=== PATIENT | male | born 1965 | race Caucasian/White ===

== ENCOUNTER → 2017-07-12 13:36 | Outpatient (CLI) | payer MEDICARE, SELFPAY ==
[2017-07-12 15:42] LABS: Absolute Lymphocyte Count 1.72 X10^3/ul (0.83-4.51); Absolute Neutrophil Count 5.2 X10^3/uL (2.0-7.7); Basophil# 0.03 X10^3/uL; Basophil% 0.4 % (0-1); Eosinophil# 0.13 X10^3/uL; Eosinophils% 1.7 % (0-5); Hematocrit 42.7 % (40-54); Hemoglobin 14.2 g/dl (13.0-16.5); Lymphocyte # 1.72 X10^3/ul (4.0); Lymphocyte % 22.5 % (19-41); Mean Corp Hgb Conc 33.3 g/gl (32-36); Mean Corpuscular Hgb 31.5 pg (27.0-32.0); Mean Corpuscular Volume 94.7 fL (80-94); Mean Platelet Vol. 8.9 fl (6.2-12.0); Monocyte# 0.53 X10^3/uL; Monocyte% 6.9 % (0-10); Neutrophil # 5.21 X10^3/uL (2.7-7.7); Neutrophil % 68.4 % (47-70); Platelet Count 298 K/mm3 (150-450); RBC Distribution Width CV 13.6 % (11.6-14.6); Red Blood Count 4.51 M/mm3 (4.6-6.2); White Blood Count 7.6 K/mm3 (4.4-11.0)
[2017-07-12 15:43] LABS: POSITIVE COUNT NO; POSITIVE DIFFERENTIAL NO; POSITIVE MORPHOLOGY NO
[2017-07-12 16:05] LABS: ALB/GLOB Ratio 0.8 RATIO (0.9-2.4); AST(SGOT) 18 U/L (15-37); Alanine Aminotransfer ALT/SGPT 28 U/L (16-61); Albumin, Serum 3.5 g/dL (3.2-5.0); Alkaline Phosphatase 86 U/L (45-117); Anion Gap 8 (5-15); BUN 13 mg/dL (7-18); BUN/Creat Ratio 13.6 RATIO (10-20); Calcium,Total 8.5 mg/dL (8.5-10.1); Chloride 99 mmol/L (98-107); Cholesterol 169 mg/dL (200); Creatinine, Serum 0.96 mg/dL (0.70-1.30); EST Glomerular Filtration Rate 87 mL/min (>60); Est Glom Filt Rate - Afr Amer 106 mL/min (>60); Globulin 4.4 g/dL (2.2-4.2); Glucose 205 mg/dL (74-106); High Density Lipoprotein 36 mg/dL; PSA,Total - Annual Screen 0.35 ng/mL (0.00-4.00); Potassium 3.4 mmol/L (3.5-5.1); Protein, Total 7.9 g/dL (6.4-8.2); Sodium Level 136 mmol/L (136-145); T4 Free Direct 1.02 ng/dL (0.76-1.46); Thyroid Stim Hormone (TSH) 2.63 uIU/mL (0.358-3.74); Triglycerides 194 mg/dL; Very Low Density Lipoprotein 39 mg/dL (5-40)
== END ==
PROVIDERS: Family Provider Family Medicine; PCP Family Medicine; Visit Provider Family Medicine
DX: R73.9 Hyperglycemia, unspecified (principal); I10 Essential (primary) hypertension; Z12.5 Encounter for screening for malignant neoplasm of prostate; E01.0 Iodine-deficiency related diffuse (endemic) goiter
CPT/HCPCS: 36415; 80053; 80061; 83036; 84153; 84439; 84443; 85025; G0103

== ENCOUNTER → 2019-08-05 06:47 | Outpatient (CLI) | payer MEDICARE, SELFPAY ==
[2017-04-22 13:53] VITALS: BMI 32.7
[2019-08-05 07:32] LABS: Absolute Lymphocyte Count 1.64 X10^3/uL (0.83-4.51); Absolute Neutrophil Count 8.1 X10^3/uL (2.0-7.7); Basophil# 0.05 X10^3/uL; Basophil% 0.5 % (0-1); Eosinophil# 0.18 X10^3/uL; Eosinophils% 1.7 % (0-5); Hematocrit 48.6 % (40-54); Hemoglobin 16.5 g/dL (13.0-16.5); Lymphocyte # 1.64 X10^3/ul (4.0); Lymphocyte % 15.3 % (19-41); Mean Corpuscular Hgb 31.8 pg (27.0-32.0); Mean Corpuscular Volume 93.6 fL (80-94); Mean Platelet Vol. 8.8 fl (6.2-12.0); Monocyte# 0.75 X10^3/uL; NRBC Flagged by Analyzer 0 % (0-5); Neutrophil # 8.05 X10^3/uL (2.7-7.7); Neutrophil % 75.2 % (47-70); Platelet Count 273 K/mm3 (150-450); RBC Distribution Width CV 13.1 % (11.6-14.6); RBC Distribution Width SD 44.8 fl (35.1-43.9); Red Blood Count 5.19 M/mm3 (4.6-6.2); White Blood Count 10.7 K/mm3 (4.4-11.0)
[2019-08-05 07:45] LABS: Microalbumin,Random Urine 28.7 mg/L (NO RANGE EST.); Microalbumin:Creatinine Ratio 31.4 mg/g CRE (<30 mg/g CRE)
[2019-08-05 07:50] LABS: Hemoglobin A1c 7.3 % (4.2-6.3)
[2019-08-05 07:58] LABS: ALB/GLOB Ratio 0.8 RATIO (0.9-2.4); AST(SGOT) 24 U/L (15-37); Alanine Aminotransfer ALT/SGPT 38 U/L (16-61); Albumin, Serum 3.8 g/dL (3.2-5.0); Alkaline Phosphatase 126 U/L (45-117); Anion Gap 3 (5-15); BUN 10 mg/dL (7-18); BUN/Creat Ratio 10.9 RATIO (10-20); Calcium,Total 8.9 mg/dL (8.5-10.1); Chloride 105 mmol/L (98-107); Cholesterol 181 mg/dL (200); Creatinine, Serum 0.92 mg/dL (0.70-1.30); EST Glomerular Filtration Rate 91 mL/min (>60); Est Glom Filt Rate - Afr Amer 110 mL/min (>60); Globulin 4.9 g/dL (2.2-4.2); Glucose 169 mg/dL (74-106); High Density Lipoprotein 48 mg/dL; Potassium 3.5 mmol/L (3.5-5.1); Protein, Total 8.7 g/dL (6.4-8.2); Sodium Level 139 mmol/L (136-145); Triglycerides 109 mg/dL; Very Low Density Lipoprotein 22 mg/dL (5-40)
== END ==
PROVIDERS: PCP Family Medicine; Visit Provider Family Medicine
DX: Z00.00 Encounter for general adult medical examination without abnormal findings (principal); E11.9 Type 2 diabetes mellitus without complications; I10 Essential (primary) hypertension; Z12.5 Encounter for screening for malignant neoplasm of prostate
CPT/HCPCS: 36415; 80053; 80061; 82043; 82570; 83036; 84153; 85025; G0103

== ENCOUNTER → 2020-06-17 09:12 | Outpatient (CLI) | payer MEDICARE, SELFPAY ==
[2017-04-22 13:53] VITALS: BMI 32.7
[2020-06-17 09:48] LABS: Absolute Lymphocyte Count 1.81 X10^3/uL (0.83-4.51); Absolute Neutrophil Count 7.7 X10^3/uL (2.0-7.7); Basophil# 0.05 X10^3/uL; Basophil% 0.5 % (0-1); Eosinophil# 0.15 X10^3/uL; Eosinophils% 1.4 % (0-5); Hematocrit 45.4 % (40-54); Hemoglobin 15.3 g/dL (13.0-16.5); Lymphocyte # 1.81 X10^3/ul (4.0); Lymphocyte % 17.4 % (19-41); Mean Corp Hgb Conc 33.7 g/dL (32-36); Mean Corpuscular Volume 91.9 fL (80-94); Mean Platelet Vol. 8.9 fl (6.2-12.0); Monocyte# 0.64 X10^3/uL; Monocyte% 6.1 % (0-10); NRBC Flagged by Analyzer 0 % (0-5); Neutrophil # 7.74 X10^3/uL (2.7-7.7); Neutrophil % 74.2 % (47-70); Platelet Count 274 K/mm3 (150-450); RBC Distribution Width CV 13.2 % (11.6-14.6); RBC Distribution Width SD 44.5 fl (35.1-43.9); Red Blood Count 4.94 M/mm3 (4.6-6.2); White Blood Count 10.4 K/mm3 (4.4-11.0)
[2020-06-17 10:06] LABS: Hemoglobin A1c 7.5 % (3.8-5.6)
[2020-06-17 10:10] LABS: Microalbumin,Random Urine 38.7 mg/L (NO RANGE EST.); Microalbumin:Creatinine Ratio 21.1 mg/g CRE (<30 mg/g CRE)
[2020-06-17 10:17] LABS: ALB/GLOB Ratio 0.9 RATIO (0.9-2.4); AST(SGOT) 25 U/L (15-37); Alanine Aminotransfer ALT/SGPT 36 U/L (16-61); Albumin, Serum 3.7 g/dL (3.2-5.0); Alkaline Phosphatase 103 U/L (45-117); Anion Gap 6 (5-15); BUN 9 mg/dL (7-18); BUN/Creat Ratio 10.1 RATIO (10-20); Calcium,Total 8.7 mg/dL (8.5-10.1); Chloride 104 mmol/L (98-107); Cholesterol 183 mg/dL (200); Creatinine, Serum 0.89 mg/dL (0.70-1.30); EST Glomerular Filtration Rate 94 mL/min (>60); Est Glom Filt Rate - Afr Amer 114 mL/min (>60); Globulin 4.3 g/dL (2.2-4.2); Glucose 182 mg/dL (74-106); High Density Lipoprotein 52 mg/dL; Potassium 3.3 mmol/L (3.5-5.1); Sodium Level 139 mmol/L (136-145); Triglycerides 84 mg/dL; Very Low Density Lipoprotein 17 mg/dL (5-40)
== END ==
PROVIDERS: PCP Family Medicine; Referring Provider Family Medicine; Visit Provider Family Medicine
DX: E11.9 Type 2 diabetes mellitus without complications (principal); I10 Essential (primary) hypertension
CPT/HCPCS: 36415; 80053; 80061; 82043; 82570; 83036; 85025

== ENCOUNTER 2020-12-31 15:35 | Emergency (ER) | payer MEDICARE, SELFPAY ==
[2020-12-31 15:37] VITALS: BP 137/73; PULSE 93; RESP 28; TEMP 36.3; O2SAT 97; BMI 65.3
--- NOTE | 2020-12-31 16:02 | CT_ITS ---
STUDY: CT BRAIN WITHOUT CONTRAST REASON FOR EXAM: Male, 55 years old. Seizure like activity RADIATION DOSAGE (If Supplied By Facility): CTDIvol = ( 44.99 ) mGy, DLP = ( 846.73 ) mGycm TECHNIQUE: Transaxial CT imaging of the brain was performed without administration of intravenous contrast material. Individualized dose optimization techniques were used for this CT. COMPARISON: No relevant priors. FINDINGS: Normal soft tissue structures. Normal calvarium. Normal size ventricles and extra-axial spaces for the patient''s age. Normal white matter tracts of the cerebral hemispheres. Lacunar infarction of the right basal ganglia/caudate head, chronic appearing. Localized encephalomalacia and gliosis of the right parietal lobe compatible with old posterior MCA infarct. Normal brainstem. Normal cerebellum. There is no intracranial hemorrhage. There are no findings of an acute ischemic infarction. Normal visualized paranasal sinuses. CT/Brain/Head without Contrast IMPRESSION: 1. No acute intracranial hemorrhage or mass effect. 2. 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 3. Old left caudate/basal ganglia lacunar infarction. Electronically Signed: Ben Downs MD (Brooks) at 16:33 EDT , Service support ,
--- NOTE | 2020-12-31 16:03 | EKG12_ITS ---
Test Reason : SYNCOPE Blood Pressure : / mmHG Vent. Rate : 088 BPM Atrial Rate : 088 BPM P-R Int : 172 ms QRS Dur : 086 ms QT Int : 368 ms P-R-T Axes : 064 073 172 degrees QTc Int : 445 ms Normal sinus rhythm ST & T wave abnormality, consider anterolateral ischemia Abnormal ECG Confirmed by OSVALDO MORGAN, SANGEETA ([id number]), food editor SHANNA PANDEY ([id number]) on 01/05/2021 1:01:25 PM Referred By: DOTTIE Confirmed By:SANGEETA RILEY MD
--- NOTE | 2020-12-31 16:11 | EDS_ITS ---
HPI History of Present Illness Chief Complaint: Syncope Informant: patient and family Narrative Narrative: Patient is a 55-year-old male with a past medical history of hypertension, diabetes, deaf who presents to the emergency department for a episode of seizure-like activity. He was at home sitting in a chair whenever they thought he was about to pass out. He started to have a generalized convulsing. The episode lasted 2 to 3 minutes. He was lethargic after the event. Once ambulance arrived he started to come around and could not remember what happened. He did not fall and hit his head. Patient's only complaint this time is mild numbness around his palm of the pinky finger. He denies a headache or vision changes. No weakness or loss of sensation elsewhere. He denies any chest pain or shortness of breath. He feels like he did have some heart palpitations just prior to the event. He has a very distant history of seizure disorder around 15 years ago and was diagnosed with a TIA at that time. He is not on any seizure medications. Patient did have a few alcoholic beverages today. H is not typically a drinker. No tobacco or drug use. [facility] Medical History (Updated 12/31/20 @ 17:[address] Rocael Chadwick DO) Deaf Diabetes TIA (transient ischemic attack) Home Medications amlodipine 10 mg PO DAILY 12/31/20 [History Last Taken Unknown] lisinopril-hydrochlorothiazide 1 tab PO DAILY 12/31/20 [History Last Taken Unknown] metformin 1,000 mg PO BID 12/31/20 [History Last Taken Unknown] rosuvastatin 10 mg PO DAILY 12/31/20 [History Last Taken Unknown] Allergy/AdvReac Type Severity Reaction Status Date / Time No Known Allergies Allergy Verified 12/31/20 15:43 Surgical History (Updated 12/31/20 @ 15:48 by Halie Kang) Hx of cholecystectomy Social History Smoking Status: Never smoker ROS ROS ED Constitutional Constitutional ED: Denies chills or fever(s) Eyes Eyes: Denies change in vision ENT ENT ED: Denies epistaxis or rhinorrhea Cardiovascular Cardiovascular: Reports palpitations; Denies chest pain Respiratory/Chest Respiratory/Chest: Denies cough, dyspnea or dyspnea on exertion Gastrointestinal Gastrointestinal: Denies abdominal pain, diarrhea, nausea or vomiting Genitourinary Genitourinary ED: Denies dysuria, hematuria or urinary frequency Musculoskeletal Musculoskeletal: Denies back pain or neck pain Integumentary Denies rash Neurologic Neurologic: Denies dizziness, headache(s) or weakness EXAM Physical Exam Const Vital Signs: 12/31/20 15:37 12/31/20 17:13 12/31/20 17:22 Temperature 97.4 F L Temperature Source Temporal Pulse Rate 93 90 84 Respiratory Rate 28 H 26 H 24 H Blood Pressure 137/73 H 127/80 H 130/73 H Blood Pressure Mean 94 95 Pulse Ox 97 97 98 Oxygen Delivery Method Room Air Room Air Positive well nourished and well developed General Appearance ED: well developed and NAD HEENT Reports normocephalic and head/scalp atraumatic Eyes PERRL and EOMs intact bilaterally Neck supple Chest Wall inspection of chest normal Resp normal respiratory effort and clear to auscultation bilaterally Auscultation: Negative for rales, rhonchi or wheezes Cardio regular rate, regular rhythm and no murmurs GI normal to inspection, nondistended, normoactive bowel sounds and non-tender Palpation: soft; Negative for guarding or rebound tenderness present Extremity normal to inspection General Extremety ED: Negative for edema or tenderness General Extremity: Negative for edema Neuro CN's II-XII intact bilaterally and no sensory deficits noted Neuro Narrative: Mild numbness along the left lateral hand palm. Otherwise good case management assistant strength. No focal deficits. NIH score is 0. Sensorium / Orientation: alert Motor Exam: strength 5/5 throughout Psych mental status grossly normal Skin no rashes or lesions noted MDM MDM MDM Narrative Medical decision making narrative: Patient presents the ED for seizure-like activity with a short postictal state afterward. On arrival to the ED he is in no acute distress. He has no focal deficits on physical exam. Will check CT scan of the head as well as basic lab work. Patient CT scan did show evidence of old infarcts. Did discuss this with the patient and family. They state that he does have a known history of what they thought to be mini strokes. His lab work showed a low potassium which will be placed orally. No other significant acute abnormality. Glucose is mildly elevated but does have a history of diabetes. Patient's EKG had some ST changes but he denies having any chest pain or shortness of breath. Did review his previous EKG which has some subtle changes but that was 4 years ago. His troponin is well within normal limits. On reevaluation patient resting comfortably. He states all of his symptoms have since resolved and is back to his baseline now. He has no complaints. I did make a referral for cardiology as well as neurology for him to have close follow-up. Recommend no driving in the meantime. At this time do not feel he needs any treatment for seizures as this is the first 1 in many years. If he develops any repeat symptoms he needs to return back to the emergency department for reevaluation. He develops any chest pain or shortness of breath he also needs to return. This was all reviewed with them. They understand and are agreeable this plan. Discharged home in stable condition. All questions were answered. At this time I have low concern for acute CVA, CAD. Lab Data Labs: Laboratory Results - last 24 hr 12/31/20 12/31/20 12/31/20 15:53 15:53 15:53 WBC 10.0 RBC 4.61 Hgb 14.7 Hct 43.3 MCV 93.9 MCH 31.9 MCHC 33.9 RDW Std Deviation 44.9 H RDW Coeff of Andrey 13.1 Plt Count 280 MPV 8.6 Immature Gran % (Auto) 0.300 Neut % (Auto) 68.5 Lymph % (Auto) 23.2 Cedar % (Auto) 6.4 Eos % (Auto) 1.0 Baso % (Auto) 0.6 Absolute Neuts (auto) 6.9 Absolute Lymphs (auto) 2.32 Nucleated RBC % 0 Sodium 134 L Potassium 2.9 L Chloride 101 Carbon Dioxide 26.0 Anion Gap 7 BUN 13 Creatinine 1.22 Estim Creat Clear Calc 63.21 Est GFR (MDRD) Af Amer 79 Est GFR (MDRD) Non-Af 65 BUN/Creatinine Ratio 10.7 Glucose 210 H Calcium 8.8 Total Bilirubin 0.90 AST 32 ALT 48 Alkaline Phosphatase 82 Troponin I High Sens 13.8 Total Protein 7.9 Albumin 3.6 Globulin 4.3 H Albumin/Globulin Ratio 0.8 L Ethyl Alcohol 13.0 Radiography Diagnostic Testing: Radiology Impression Brain CT 12/31/20 16:02 IMPRESSION: 1. No acute intracranial hemorrhage or mass effect. 2. 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 3. Old left caudate/basal ganglia lacunar infarction. Electronically Signed: Ben Downs MD (Brooks) at 16:33 EDT , Service support , EKG Initial EKG: Attestation: I personally reviewed and interpreted this EKG as follows: (Rate of 88 bpm and normal sinus rhythm. Normal intervals. Normal axis. There are some ST changes throughout the EKG. Mild elevation in V1, V2. There are some T wave inversions in the anterior lateral leads. Previous EKG for comparison was on April 19. There are some mild ST abnormalities a) Discharge Plan Triage Chief Complaint: Syncope Other Complaint: Seizure ED Provider: Rocael Chadwick Dx/Rx/DC Orders Clinical Impression: Seizure-like activity Instructions: ED Seizure, Recurrent (Adult) Prescriptions: No Action lisinopril-hydrochlorothiazide 20-12.5 mg Tablet 1 tab PO DAILY RF: 0 amlodipine 10 mg Tablet 10 mg PO DAILY RF: 0 metformin 1,000 mg Tablet 1,000 mg PO BID RF: 0 rosuvastatin 10 mg Tablet 10 mg PO DAILY RF: 0 Primary Care Provider: Jose Spencer Referrals: Jose Spencer DO [Primary Care Provider] - Jim Hwang MD [STAFF PHYSICIAN] - 1 Day Parag Lutz MD [STAFF PHYSICIAN] - 1 Day Activity Restrictions/Additional Instructions: Please call the chief orthoptist office Saturday morning for EKG changes. If he develops any chest pain, shortness of breath he needs to come back to the emergency department. Please also contact the neurologist for the seizure-like activity. CT scan did show old infarcts but no findings. If he develops any repeat seizure-like activity, significant headache, weakness or loss of sensation in extremity he needs to return back to the emergency department. Disposition Disposition: Home, Self Care Discharge Date/Time: 12/31/20 17:35
[2020-12-31 16:15] LABS: Absolute Lymphocyte Count 2.32 X10^3/uL (0.83-4.51); Absolute Neutrophil Count 6.9 X10^3/uL (2.0-7.7); Basophil# 0.06 X10^3/uL; Basophil% 0.6 % (0-1); Hematocrit 43.3 % (40-54); Hemoglobin 14.7 g/dL (13.0-16.5); Lymphocyte # 2.32 X10^3/ul (0.83-4.51); Lymphocyte % 23.2 % (19-41); Mean Corp Hgb Conc 33.9 g/dL (32-36); Mean Corpuscular Hgb 31.9 pg (27.0-32.0); Mean Corpuscular Volume 93.9 fL (80-94); Mean Platelet Vol. 8.6 fl (6.2-12.0); Monocyte# 0.64 X10^3/uL; Monocyte% 6.4 % (0-10); NRBC Flagged by Analyzer 0 % (0-5); Neutrophil # 6.85 X10^3/uL (2.7-7.7); Neutrophil % 68.5 % (47-70); Platelet Count 280 K/mm3 (150-450); RBC Distribution Width CV 13.1 % (11.6-14.6); RBC Distribution Width SD 44.9 fl (35.1-43.9); Red Blood Count 4.61 M/mm3 (4.6-6.2)
[2020-12-31 16:34] LABS: ALB/GLOB Ratio 0.8 RATIO (0.9-2.4); AST(SGOT) 32 U/L (15-37); Alanine Aminotransfer ALT/SGPT 48 U/L (16-61); Albumin, Serum 3.6 g/dL (3.2-5.0); Alkaline Phosphatase 82 U/L (45-117); Anion Gap 7 (5-15); BUN 13 mg/dL (7-18); BUN/Creat Ratio 10.7 RATIO (10-20); Calcium,Total 8.8 mg/dL (8.5-10.1); Chloride 101 mmol/L (98-107); Creatinine, Serum 1.22 mg/dL (0.70-1.30); EST Glomerular Filtration Rate 65 mL/min (>60); Est Glom Filt Rate - Afr Amer 79 mL/min (>60); Estimated Creatinine Clearance 63.21 ml/min; Globulin 4.3 g/dL (2.2-4.2); Glucose 210 mg/dL (74-106); Potassium 2.9 mmol/L (3.5-5.1); Protein, Total 7.9 g/dL (6.4-8.2); Sodium Level 134 mmol/L (136-145); Troponin-I HS 13.8 pg/mL (3.0-78.5)
[2020-12-31 17:13] VITALS: BP 127/80; PULSE 90; RESP 26; O2SAT 97
[2020-12-31 17:22] VITALS: BP 130/73; PULSE 84; RESP 24; O2SAT 98
[2020-12-31] MEDS: Potassium Chloride Oral Tablet 20 MEQ 40 MEQ PO (17:22)
== END 2020-12-31 17:35 | disposition home or self-care (01) ==
PROVIDERS: Emergency Provider Emergency Medicine; PCP Family Medicine
DX: R56.9 Unspecified convulsions (principal); I10 Essential (primary) hypertension; E11.9 Type 2 diabetes mellitus without complications; H91.90 Unspecified hearing loss, unspecified ear; Z86.73 Personal history of transient ischemic attack (TIA), and cerebral infarction without residual deficits; Z79.84 Long term (current) use of oral hypoglycemic drugs; Z79.899 Other long term (current) drug therapy
CPT/HCPCS: 70450; 80053; 82077; 84484; 85025; 93005; 99285; A4216

== ENCOUNTER → 2021-03-01 09:46 | Outpatient (CLI) | payer MEDICARE, SELFPAY ==
--- NOTE | 2021-03-01 10:02 | ECHOCS_ITS ---
Reason For Study: Fatigue, Syncope, Abn EKG Procedure This was a 2D Doppler, Color Flow transthoracic echocardiogram. The study was technically difficult. Contrast injection was performed. Exam performed in department. Left Ventricle Normal LV size. Left ventricular systolic function is normal. The estimated ejection fraction is 65 %. Transmitral doppler flow suggestive of impaired relaxation of left ventricle. No regional wall motion abnormalities noted. Right Ventricle Normal RV size. Normal systolic function. Atria Normal left atrium. Normal right atrium. No doppler evidence for ASD. Mitral Valve There is no mitral annular calcification. Normal mitral valve. Mild (1+) mitral valve insufficiency. Tricuspid Valve Normal tricuspid valve. Trivial tricuspid valve insufficiency. Right ventricular systolic pressure estimated to be 22 mmHg. Aortic Valve Trisinus/trileaflet aortic valve. Mild focal aortic valve calcification. Trivial aortic valve insufficiency. Pulmonic Valve The pulmonic valve is not well visualized. Mild (1+) pulmonic valve insufficiency. Great Vessels Normal sized aortic root. Pericardium/Pleural No pericardial effusion. Medication Diluted definity 2ml given slow IV push to enhance endocardial definition. MMode/2D Measurements & Calculations LVIDd: 4.8 cm IVSd: 0.98 cm Ao root diam: 2.6 cm LVIDs: 2.8 cm LVPWd: 1.3 cm RVDd: 2.7 cm FS: 40.4 % LAV(MOD-bp): 32.2 ml LA A4 area: 14.1 cm2 LA dimension(2D): 3.7 cm LAV(MOD-bp) Indexed: 16.2 ml/m2 LAV(MOD-sp2): 31.0 ml LAV(MOD-sp4): 32.7 ml RA A4 area: 9.0 cm2 Doppler Measurements & Calculations MV E max jarrett: 76.6 cm/sec Lat Peak E' Jarrett: 6.5 cm/sec Med Peak E' Jarrett: 7.1 cm/sec MV A max jarrett: 116.6 cm/sec E/E' lat: 11.8 E/E' med: 10.8 MV E/A: 0.66 Ao V2 max: 167.7 cm/sec LV V1 max: 132.5 cm/sec PA V2 max: 92.5 cm/sec Ao max P.2 mmHg LV V1 max P.0 mmHg Ao V2 mean: 123.2 cm/sec Ao mean P.5 mmHg Ao V2 VTI: 32.1 cm PI end-d jarrett: 101.1 cm/sec TR max jarrett: 216.8 cm/sec TR max P.8 mmHg ECHO/Echo Complete W/ Contrast Interpretation Summary The study was technically difficult. Contrast injection was performed. Left ventricular systolic function is normal. The estimated ejection fraction is 65 %. Mild (1+) mitral valve insufficiency. Trivial tricuspid valve insufficiency. Mild focal aortic valve calcification. Trivial aortic valve insufficiency. Mild (1+) pulmonic valve insufficiency. Right ventricular systolic pressure estimated to be 22 mmHg. Transmitral doppler flow suggestive of impaired relaxation of left ventricle Ordering Physician: Jim Hwang Referring Physician: Jose Spencer Performed By: Talia Andrea, NAHOMI, RVT
== END ==
PROVIDERS: PCP Family Medicine; Referring Provider Internal Medicine Cardiovascular Disease; Visit Provider Internal Medicine Cardiovascular Disease
DX: R94.31 Abnormal electrocardiogram [ECG] [EKG] (principal); R53.83 Other fatigue; R55 Syncope and collapse
CPT/HCPCS: 93306; Q9957; A4216; C8929; J3490

== ENCOUNTER → 2021-05-24 07:35 | Outpatient (CLI) | payer MEDICARE, SELFPAY ==
--- NOTE | 2021-05-24 07:39 | CT_ITS ---
STUDY: CT FACIAL BONES WITHOUT CONTRAST REASON FOR EXAM: Male, 55 years old. Cyst in the left jaw. RADIATION DOSAGE (If Supplied By Facility): CTDIvol = ( 29.38 ) mGy, DLP = ( 635.61 ) mGycm TECHNIQUE: The patient was scanned in a multi detector CT scanner. Sagittal and coronal images were reconstructed. Individualized dose optimization techniques were used for this CT. COMPARISON: None. FINDINGS: There is multiple small submental lymph nodes. Normal orbital benitez and orbital contents. Normal nasal bones and anterior nasal spine. There is a 1.7 cm x 0.9 cm cyst in the posterior aspect of the left mandible at the junction with the left ramus. A tooth is seen within it. An ameloblastoma should be ruled out. There is no demonstrated fracture. There is a 7.2 mm mucosal polyp or retention cyst along the anterior inferior aspect of the right maxillary sinus. CT/Sinus/Facial Bone IMPRESSION: 1.7 cm x 0.9 cm cyst in the posterior aspect of the left mandible at the junction with the left ramus of the mandible. An ameloblastoma should be ruled out. Electronically Signed: Rm Berry MD at 11:11 EST , Service support ,
== END ==
PROVIDERS: PCP Family Medicine
DX: M27.40 Unspecified cyst of jaw (principal)
CPT/HCPCS: 70486

== ENCOUNTER → 2021-11-13 | Outpatient (CLI) | payer MEDICARE, SELFPAY ==
[2021-11-13 13:54] LABS: BNP,B-Type NATRIURETIC PEPTIDE 8.3 pg/mL (0-100)
[2021-11-13 14:07] LABS: ALB/GLOB Ratio 0.8 RATIO (0.9-2.4); AST(SGOT) 60 U/L (15-37); Alanine Aminotransfer ALT/SGPT 75 U/L (16-61); Albumin, Serum 3.4 g/dL (3.2-5.0); Alkaline Phosphatase 85 U/L (45-117); Anion Gap 6 (5-15); BUN 16 mg/dL (7-18); BUN/Creat Ratio 15.2 RATIO (10-20); Chloride 100 mmol/L (98-107); Creatinine, Serum 1.05 mg/dL (0.70-1.30); EST Glomerular Filtration Rate 77 mL/min (>60); Est Glom Filt Rate - Afr Amer 94 mL/min (>60); Globulin 4.5 g/dL (2.2-4.2); Glucose 269 mg/dL (74-106); Potassium 3.7 mmol/L (3.5-5.1); Protein, Total 7.9 g/dL (6.4-8.2); Sodium Level 135 mmol/L (136-145); Thyroid Stim Hormone (TSH) 4.84 uIU/mL (0.358-3.74)
== END | disposition home or self-care (01) ==
LOC: LAB 12:25
PROVIDERS: PCP Family Medicine; Referring Provider Family Medicine; Visit Provider Family Medicine
DX: I10 Essential (primary) hypertension (principal); R63.5 Abnormal weight gain; R60.9 Edema, unspecified; R06.00 Dyspnea, unspecified
CPT/HCPCS: 36415; 80053; 83880; 84443

== ENCOUNTER 2022-08-23 09:17 | Day surgery (SDC) | payer MEDICARE, SELFPAY ==
[2022-08-23] VITALS (7 sets, daily range): BP systolic 98–134; BP diastolic 61–95; PULSE 85–104; RESP 16–20; TEMP 36.2–37; O2SAT 87–98; BMI 32.4
[2022-08-23] MEDS: Lactated Ringers 1,000 ML 15 ML IV (10:04)
--- NOTE | 2022-08-23 10:19 | PCM.HP.BLA ---
History and Physical Date of Admission: 08/23/22 Date of Service:? 04/11/22 MR#: [id number] Acct: [id number] Name:BRYAN BOWSER Rep #: [id number] : 1965 ? ? Provider: Dr. Matti Santos MD Age/Sex:? 56/M ? ? Location: [facility] [address] Status: Signed Intake Vital Signs ? 02/16/2114:08 04/11/2209:47 Height 5 ft 7 in ? Weight: ? 212 lb BP ? 122/85 H Blood Pressure Location ? Lt popliteal Position ? Sitting Respiration ? 17 Pulse ? 89 Pulse Source ? Monitor Temp ? 97.5 F L Temp Source ? Temporal Pulse Oximetry (%) ? 95 Oxygen Delivery Method ? room air Intake Visit Reasons:?COLONOSCOPY- PT IS DEAF Chief Complaint: colonoscopy Is patient in pain?: No Allergies No Known Allergies Allergy (Verified 04/11/22 09:48) Medications amlodipine 10 mg tablet 10 mg PO DAILY 12/31/20 [History Confirmed 04/11/22] lisinopril 20 mg-hydrochlorothiazide 12.5 mg tablet 1 tab PO DAILY 12/31/20 [History Confirmed 04/11/22] metformin 1,000 mg tablet 1,000 mg PO BID 12/31/20 [History Confirmed 04/11/22] rosuvastatin 10 mg tablet 10 mg PO DAILY 12/31/20 [History Confirmed 04/11/22] aspirin 81 mg chewable tablet 81 mg PO DAILY 04/11/22 [History Confirmed 04/11/22] dulaglutide 0.75 mg/0.5 mL subcutaneous pen injector (Trulicity) 0.75 mg subcut QWEEK 04/11/22 [History Confirmed 04/11/22] glipizide 5 mg tablet 5 mg PO DAILY 04/11/22 [History Confirmed 04/11/22] metoprolol tartrate 50 mg tablet 50 mg PO DAILY 04/11/22 [History Confirmed 04/11/22] PFSH Medical History? Abnormal electro-oculogram Deaf Diabetes Essential hypertension Hypertension Syncope TIA (transient ischemic attack) Type 2 diabetes mellitus Surgical History? History of hernia repair Hx of cholecystectomy Status post total right knee replacement Family History?(Updated 04/11/22 @ 09:46 by Kemi Becker) Mother Thyroid disorder Social History? Smoking Status:? Never smoker alcohol intake:? current details:? occasional substance use type:? does not use caffeine:? Yes (occasional) HPI HPI HPI: ?Patient is a 56-year-old male who presents for need to schedule screening colonoscopy secondary to age.? They are referred for surgical consultation from Dr. Spencer.? He is deaf and presents with his sister who provides much of the history and interpretation of patient responses.? Patient has not had prior colonoscopy.? Patient has no personal history of inflammatory bowel disease, diverticulitis, or colon cancer. They describe their bowel habits as normal.? They have approximately 2 bowel movements per day and spend minimal time on the toilet without significant straining.? They have not noticed recent bleeding or dark stools.? They deny any caliber change to their stools.? They do not regularly take fiber supplements.? They do not consume significant fiber in their regular diet. Patient has no family history of colon cancer, inflammatory bowel disease, or diverticulitis.? Patient's sister reports that their family history is most inclusive of cardiac diagnoses.? ? The patient's weight is not stable and his sister reports that he has gained approximately 20 pounds over the last couple of months.? She states this is solely due to overeating and not being very active.? She reports that her family will get on her brother's case about this issue and he will drop the weight just as quickly as it was added. The patient is not prescribed anticoagulants/blood thinners.? When asking about patient's reported history of a DVT, patient's sister states she believes this diagnosis dates back to the and that there is been no further issues recently. Relevant prior abdominal surgical history includes: A umbilical hernia repair 10 years ago via open laparotomy Patient does not have a significant history of GERD/heartburn ROS General General: Yes weight change; No appetite, fatigue, colon cancer, breast cancer or weakness HEENT HEENT: No difficulty swallowing, eye injury, eye surgery, swollen glands or hoarseness Endo Endocrine: Yes diabetes mellitus; No thyroid disease, thyroid cancer, Hair loss, heat intolerance or cold intolerance Skin Skin: No rash or changing moles Breast Breast: No left breast lump, right breast lump, nipple discharge, breast pain, abnormal mammogram, abnormal US or breast enlargement Musc Musculoskeletal: No back problems, arthritis, rheumatoid arthritis, gout or joint pain Cardio Cardiovascular: Yes high blood pressure; No murmur, pacemaker, heart disease, atrial fibrillation, heart attack, heart stent, palpitations, shortness of breat with exertion or chest pain Psych Psychiatric: No depression, anxiety or hearing voices Resp Respiratory: No shortness of breath, No sleep apnea, No cough, No COPD, No asthma, No emphysema and No wheezing Gastro Gastrointestinal: No abdominal pain, No nausea or vomiting, No diarrhea, No constipation, No blood in stool, No acid reflux, No hemorrhoids, No ulcers, No gallbladder problem and No black,tarry stools Gibson Hematologic: No blood thinners, No blood disorders, No bleeding, No anemia and No blood clots Neuro Neurologic: No system reviewed and no additional complaints, except as documented, No as per HPI, No abnormal gait, No abnormal hearing, No abnormal movements, No abnormal speech, No behavioral changes, No burning sensations, No confusion, No convulsions, No disequilibrium, No dizziness, No localized weakness, No frequent falls, No headache(s), No lack of coordination, No loss of vision, No memory loss, No numbness, No other visual disturbances, No radicular pain, No restless legs, No sensory deficit, No syncope, No tingling, No tremor(s), No weakness and Yes other (mild stroke) Exam Const General: cooperative, comfortable and no acute distress Orientation: alert, awake and oriented x3 Limitations: other limitations (Patient is deaf and requires questions to be relayed through his sister) Resp Auscultation: clear to auscultation bilaterally, no rales, no rhonchi and no wheezes Cardio Rate: regular rate Rhythm: regular rhythm GI Other: Obese, well-healed midline laparotomy scar which obscures patient's umbilicus.? Nondistended.? Soft.? Nontender to palpation x4 quadrants. Assessment and Plan Assessment and Plan (1) Screening for colon cancer: ?Status:?Acute ?Comment: This is a 56-year-old male, with past medical history significant for deafness, type 2 diabetes, hypertension, obesity, and prior CVA, who presents for evaluation for screening colonoscopy.? He denies any significant GI symptoms and his only prior abdominal surgical procedure was a open umbilical hernia repair performed remotely.? He has not had any prior colon screening to date, but his primary care provider Dr. Spencer has recommended a screening exam.? Patient has no significant family history of colon cancer/polyp history.? When I offer latest availability for endoscopy, patient's sister expresses some reservation about the immediately available dates and she will be leaving [place] for the winter and not returning until August 2022.? She questions to know why this would need to be rushed.? In the absence of any alarm symptoms, and desire to accommodate family concerns, I am happy to plan for a screening colonoscopy for Mr. Perez when she returns in August 2022.? Prep instructions were given at today's visit to at least familiarize him with these expectations. ?Plan: Screening colonoscopy to be performed under local MAC August 2022 once patient's sister is able to help facilitate this exam. I have examined the patient and the H&P has been reviewed. There are no clinical changes since date of exam. Patient presents today with his sister who provides interval history. She states that there have not been any updates apart from some meds to his diabetes medications due to higher blood sugars for her brother. She reports that he stayed at her house yesterday for his colon prep and she confirms with him that his output now appears clear. Therefore we will proceed to the endoscopy suite for screening colonoscopy as described above.
[2022-08-23 10:25] LABS: Bedside Glucose 192 mg/dL (74-106)
--- NOTE | 2022-08-23 10:30 | COLBX_PTH ---
PATIENT: BRYAN GAMING LOC: EN U#:[id number] AGE/SX: 57/M ROOM: RE08/23/[address]: Dr. Matti Santos MD : 1965 BED: DIS: 08/23/2022 SPEC #: [id number] RECD: 08/23/22 12:20 STATUS: MAUREEN NUNO #: [id number] ALLYSON: 08/23/22 10:[address]: Matti Santos DEPT: SURGICAL PATHOLOGY RECD BY: Taisha Vasques ENTERED: 08/23/22 13:09 SP TYPE: COLON BX OTHR DR: Dr. Jose Spencer DO Tissues: Sigmoid colon biopsy Procedures: Surgery Specimen Level IV HEADER OPERATION: Colonoscopy (MAC) with biopsy PRE-OP DIAGNOSIS: Screening TISSUE SUBMITTED: Sigmoid polyp biopsy MICROSCOPIC DIAGNOSIS Sigmoid colon polyp, biopsy: Fragments of benign colonic mucosa. See comment. AM:devin 08/24/2022 COMMENT Neither hyperplastic nor adenomatous change is identified. Clinical correlation is suggested. MICROSCOPIC DESCRIPTION Slides are reviewed. GROSS DESCRIPTION Received in fixative is one container labeled with the patient's name and designated sigmoid polyp biopsy. The specimen consists of one irregular fragment of light ledbetter soft tissue that measures 0.5 x 0.2 x 0.1 cm. The specimen is totally submitted in one cassette. / SJ:devin 08/23/2022 TC:5 CPT: 11738
--- NOTE | 2022-08-23 12:06 | OP.COLON_ITS ---
Patient Name: Sharad Perez Procedure Date: 08/23/2022 10:12 AM Date of : 1965 Age: 57 Procedure: Colonoscopy Indications: Screening for colorectal malignant neoplasm Providers: Matti Sanots MD Referring MD: Matti Santos MD Medicines: See the Anesthesia note for documentation of the administered medications Patient Profile: Refer to note in patient chart for documentation of history and physical. Last Colonoscopy: none. The patient's first colonoscopy is today. Complications: Scope trauma Procedure: Pre-Anesthesia Assessment: - The heart rate, respiratory rate, oxygen saturations, blood pressure, adequacy of pulmonary ventilation, and response to care were monitored throughout the procedure. After I obtained informed consent, the scope was passed under direct vision. Throughout the procedure, the patient's blood pressure, pulse, and oxygen saturations were monitored continuously. The colonoscope was introduced through the anus and advanced to the sigmoid colon. The colonoscopy was extremely difficult due to a tortuous colon. The patient tolerated the procedure well. The quality of the bowel preparation was good. Scope In: 10:31:03 AM Scope Out: 11:56:53 AM Total Procedure Duration Time 1 hour 25 minutes 50 seconds Findings: A 5 mm polyp was found in the distal sigmoid colon. The polyp was sessile. Biopsies were taken with a cold forceps for histology. Estimated blood loss was minimal. The sigmoid colon was significantly tortuous. Advancing the scope required withdrawing the scope and replacing with the adult endoscope. Estimated blood loss: none. The perianal and digital rectal examinations were normal. Multiple small-mouthed diverticula were found in the sigmoid colon. No biopsies or other specimens were collected for this exam. Impression: - One 5 mm polyp in the distal sigmoid colon. Biopsied. - Tortuous colon. - Diverticulosis in the sigmoid colon. No specimens collected. Recommendation: - Discharge patient to home (via wheelchair). - Resume previous diet today. - Continue present medications. - Await pathology results. - Telephone my office for pathology results in 1 week. - Perform a barium enema at appointment to be scheduled. - - No recommendation at this time regarding repeat colonoscopy due to impassable colon. Procedure Code(s): --- Professional --- 21995, 52, Colonoscopy, flexible; with biopsy, single or multiple Diagnosis Code(s): --- Professional --- Z12.11, Encounter for screening for malignant neoplasm of colon D12.5, Benign neoplasm of sigmoid colon K57.30, Diverticulosis of large intestine without perforation or abscess without bleeding Q43.8, Other specified congenital malformations of intestine CPT copyright 2017 [employer]. All rights reserved. The codes documented in this report are preliminary and upon traffic counter review may be revised to meet current compliance requirements. Matti Santos MD 08/23/2022 12:05:39 PM This report has been signed electronically. Number of Addenda: 0 Note Initiated On: 08/23/2022 10:12 AM
--- NOTE | 2022-08-23 12:07 | OP.CCLET_ITS ---
08/23/2022 Jose Spencer [id number] [place] [address] Re : Colonoscopy procedure for Sharad Chiuckey Dear Dr. Spencer This procedure was performed on August. My impressions and recommendations are as follows: Impressions : - One 5 mm polyp in the distal sigmoid colon. Biopsied. - Tortuous colon. - Diverticulosis in the sigmoid colon. No specimens collected. Recommendations : - Discharge patient to home (via wheelchair). - Resume previous diet today. - Continue present medications. - Await pathology results. - Telephone my office for pathology results in 1 week. - Perform a barium enema at appointment to be scheduled. - - No recommendation at this time regarding repeat colonoscopy due to impassable colon. My findings are described in the full procedure note, which is enclosed. If I can be of further assistance, please feel free to contact me at Doctor phone number(s): , Work: . Sincerely, Matti Santos MD 08/23/2022 12:05:39 PM This report has been signed electronically.
--- NOTE | 2022-08-23 12:50 | SUR.PHASEI ---
PATIENT ARRIVED TO PACU BAY 1 AT 1200. ABDOMEN IS DISTENDED, ROUND, FIRM TENDER TO TOUCH. ENDO RN STATES AIR WAS USED DURING LENGTHY ATTEMPT TO DO THE COLOSCOPY. PATIENT IS DEAF. OSCAR PHELPS RN FROM [place], WHO KNOWS [employer] CAME TO THE BEDSIDE TO COMMUNICATE TO THE PATIENT. OSCAR REMAINED WITH THE PATIENT UNTIL 12:40. ASSISTED UP TO BSC AFTER MAC ANESTHESIA VITAL SIGNS WERE COMPLETE. ENCOURAGED TO PASS FLATUS.
--- NOTE | 2022-08-23 13:57 | SUR.PHASEII ---
RADIOLOGY CALLED AND SAID THAT THEY ARE NOT ABLE TO DO THE BARIUM ENEMA BECAUSE THE PATIENT HAD A BIOPSY TODAY. THEY WILL GET IT SCHEDULED AND SEND THE PATIENT HOME.
== END 2022-08-23 13:56 | disposition home or self-care (01) ==
LOC: EN 09:24 → AC 09:25
PROVIDERS: PCP Family Medicine; Referring Provider Family Medicine; Visit Provider Surgery
PROC: 0DJD8ZZ Inspection of Lower Intestinal Tract, Via Natural or Artificial Opening Endoscopic (ICD-10-PCS; CPT 45378; principal; 2022-08-23 10:25)
DX: Z12.11 Encounter for screening for malignant neoplasm of colon (principal); E11.9 Type 2 diabetes mellitus without complications; K57.30 Diverticulosis of large intestine without perforation or abscess without bleeding; E66.9 Obesity, unspecified; Z86.73 Personal history of transient ischemic attack (TIA), and cerebral infarction without residual deficits; H91.90 Unspecified hearing loss, unspecified ear; I10 Essential (primary) hypertension; Z79.84 Long term (current) use of oral hypoglycemic drugs; D12.5 Benign neoplasm of sigmoid colon
CPT/HCPCS: 45380; 82962; 88305; J7120; J1610; J2405

== ENCOUNTER → 2022-08-27 | Outpatient (CLI) | payer MEDICARE, SELFPAY ==
--- NOTE | 2022-08-27 09:50 | RAD_ITS ---
STUDY: BARIUM ENEMA. REASON FOR EXAM: Male, 57 years old. INCOMPLETE COLON FLUOROSCOPY TIME (if supplied): ( 36 seconds ) minutes/seconds. 7 spot views. 38.53 mGy TECHNIQUE: Contrast was injected retrograde through the rectum. A barium enema examination was performed. COMPARISON: None. FINDINGS: There is evidence of a sigmoid diverticulosis with mild narrowing of the sigmoid colon suggestive of possible diverticulitis or mucosal hypertrophy. No intraluminal filling defect is seen. No evidence of antegrade or retrograde obstruction to flow of contrast. RAD/Barium Enema No Air Cont IMPRESSION: Sigmoid diverticulosis with narrowing of the sigmoid colon as described. Electronically Signed: Rm Berry MD at 16:34 EDT ,
== END | disposition home or self-care (01) ==
LOC: RAD 09:50
PROVIDERS: PCP Family Medicine; Visit Provider Surgery
DX: Q43.8 Other specified congenital malformations of intestine (principal)
CPT/HCPCS: 74270

== ENCOUNTER → 2022-12-18 | Outpatient (CLI) | payer MEDICARE, SELFPAY ==
[2022-12-18 12:20] LABS: Absolute Lymphocyte Count 2.07 X10^3/uL (0.83-4.51); Absolute Neutrophil Count 10.8 X10^3/uL (2.0-7.7); Basophil# 0.09 X10^3/uL; Basophil% 0.6 % (0-1); Eosinophil# 0.32 X10^3/uL; Eosinophils% 2.2 % (0-5); Hematocrit 44.8 % (40-54); Hemoglobin 14.6 g/dL (13.0-16.5); Lymphocyte # 2.07 X10^3/ul (0.83-4.51); Lymphocyte % 14.5 % (19-41); Mean Corp Hgb Conc 32.6 g/dL (32-36); Mean Corpuscular Hgb 33.2 pg (27.0-32.0); Mean Corpuscular Volume 101.8 fL (80-94); Mean Platelet Vol. 9.8 fl (6.2-12.0); Monocyte# 0.94 X10^3/uL; Monocyte% 6.6 % (0-10); NRBC Flagged by Analyzer 0 % (0-5); Neutrophil # 10.81 X10^3/uL (2.7-7.7); Neutrophil % 75.8 % (47-70); Platelet Count 238 K/mm3 (150-450); RBC Distribution Width CV 12.9 % (11.6-14.6); RBC Distribution Width SD 48.5 fl (35.1-43.9); White Blood Count 14.3 K/mm3 (4.4-11.0)
[2022-12-18 12:51] LABS: ALB/GLOB Ratio 0.7 RATIO (0.9-2.4); AST(SGOT) 66 U/L (15-37); Alanine Aminotransfer ALT/SGPT 52 U/L (16-61); Albumin, Serum 3.4 g/dL (3.2-5.0); Alkaline Phosphatase 105 U/L (45-117); Anion Gap 5 (5-15); BUN 17 mg/dL (7-18); BUN/Creat Ratio 16.3 RATIO (10-20); Calcium,Total 9.3 mg/dL (8.5-10.1); Chloride 100 mmol/L (98-107); Cholesterol 104 mg/dL (200); Creatinine, Serum 1.04 mg/dL (0.70-1.30); EST Glomerular Filtration Rate 78 mL/min (>60); Est Glom Filt Rate - Afr Amer 94 mL/min (>60); Globulin 4.8 g/dL (2.2-4.2); Glucose 186 mg/dL (74-106); High Density Lipoprotein 51 mg/dL; Protein, Total 8.2 g/dL (6.4-8.2); Sodium Level 134 mmol/L (136-145); Triglycerides 98 mg/dL; Very Low Density Lipoprotein 20 mg/dL (5-40)
[2022-12-18 13:19] LABS: Microalbumin,Random Urine 33.2 mg/L (NO RANGE EST.)
== END | disposition home or self-care (01) ==
PROVIDERS: PCP Family Medicine; Referring Provider Family Medicine; Visit Provider Family Medicine
DX: Z00.00 Encounter for general adult medical examination without abnormal findings (principal); E11.9 Type 2 diabetes mellitus without complications
CPT/HCPCS: 36415; 80053; 80061; 82043; 82570; 85025

== ENCOUNTER → 2023-03-19 | Outpatient (CLI) | payer MEDICARE, SELFPAY ==
[2023-03-19 12:46] LABS: Erythrocyte Sedimentation Rate 8 mm/hr (0-20)
[2023-03-19 12:49] LABS: Absolute Lymphocyte Count 2.17 X10^3/uL (0.83-4.51); Absolute Neutrophil Count 5.1 X10^3/uL (2.0-7.7); Basophil# 0.09 X10^3/uL; Basophil% 1.1 % (0-1); Eosinophil# 0.35 X10^3/uL; Eosinophils% 4.2 % (0-5); Hematocrit 42.2 % (40-54); Hemoglobin 13.8 g/dL (13.0-16.5); Lymphocyte # 2.17 X10^3/ul (0.83-4.51); Lymphocyte % 26.1 % (19-41); Mean Corp Hgb Conc 32.7 g/dL (32-36); Mean Corpuscular Hgb 33.3 pg (27.0-32.0); Mean Corpuscular Volume 101.9 fL (80-94); Mean Platelet Vol. 9.5 fl (6.2-12.0); Monocyte# 0.57 X10^3/uL; Monocyte% 6.8 % (0-10); NRBC Flagged by Analyzer 0 % (0-5); Neutrophil # 5.13 X10^3/uL (2.7-7.7); Neutrophil % 61.6 % (47-70); Platelet Count 223 K/mm3 (150-450); RBC Distribution Width CV 13.2 % (11.6-14.6); RBC Distribution Width SD 49.8 fl (35.1-43.9); Red Blood Count 4.14 M/mm3 (4.6-6.2); White Blood Count 8.3 K/mm3 (4.4-11.0)
[2023-03-19 12:59] LABS: CRP 5.91 mg/L (0.0-3.0)
== END | disposition home or self-care (01) ==
LOC: BFHLAB 10:53
PROVIDERS: PCP Family Medicine; Visit Provider Family Medicine
DX: D72.829 Elevated white blood cell count, unspecified (principal); Z12.5 Encounter for screening for malignant neoplasm of prostate
CPT/HCPCS: 36415; 84153; 85025; 85652; 86140; G0103

== ENCOUNTER → 2024-04-08 | Outpatient (CLI) | payer MEDICARE, SELFPAY ==
[2024-04-08 11:15] LABS: Absolute Lymphocyte Count 2.65 X10^3/uL (0.83-4.51); Absolute Neutrophil Count 6.1 X10^3/uL (2.0-7.7); Basophil# 0.12 X10^3/uL; Basophil% 1.2 % (0-1); Eosinophil# 0.29 X10^3/uL; Hematocrit 43.7 % (40-54); Hemoglobin 14.3 g/dL (13.0-16.5); Lymphocyte # 2.65 X10^3/ul (0.83-4.51); Lymphocyte % 27.2 % (19-41); Mean Corp Hgb Conc 32.7 g/dL (32-36); Mean Corpuscular Hgb 32.8 pg (27.0-32.0); Mean Corpuscular Volume 100.2 fL (80-94); Mean Platelet Vol. 8.9 fl (6.2-12.0); Monocyte# 0.55 X10^3/uL; Monocyte% 5.6 % (0-10); NRBC Flagged by Analyzer 0 % (0-5); Neutrophil # 6.12 X10^3/uL (2.7-7.7); Neutrophil % 62.8 % (47-70); Platelet Count 225 K/mm3 (150-450); RBC Distribution Width CV 13.1 % (11.6-14.6); RBC Distribution Width SD 48.6 fl (35.1-43.9); Red Blood Count 4.36 M/mm3 (4.6-6.2); White Blood Count 9.8 K/mm3 (4.4-11.0)
[2024-04-08 11:39] LABS: Microalbumin,Random Urine 8.2 mg/L (NO RANGE EST.); Microalbumin:Creatinine Ratio 6.4 mg/g CRE (<30 mg/g CRE)
[2024-04-08 11:46] LABS: ALB/GLOB Ratio 0.8 RATIO (0.9-2.4); AST(SGOT) 35 U/L (15-37); Alanine Aminotransfer ALT/SGPT 39 U/L (16-61); Albumin, Serum 3.5 g/dL (3.2-5.0); Alkaline Phosphatase 82 U/L (45-117); Anion Gap 7 (5-15); BUN 18 mg/dL (7-18); Chloride 100 mmol/L (98-107); Cholesterol 111 mg/dL (200); EST Glomerular Filtration Rate 66 mL/min (>60); Est Glom Filt Rate - Afr Amer 80 mL/min (>60); Globulin 4.5 g/dL (2.2-4.2); Glucose 203 mg/dL (74-106); High Density Lipoprotein 56 mg/dL; Potassium 4.1 mmol/L (3.5-5.1); Sodium Level 133 mmol/L (136-145); Triglycerides 123 mg/dL; Very Low Density Lipoprotein 25 mg/dL (5-40)
== END | disposition home or self-care (01) ==
PROVIDERS: PCP Family Medicine; Referring Provider Family Medicine; Visit Provider Family Medicine
DX: Z12.5 Encounter for screening for malignant neoplasm of prostate (principal); E11.9 Type 2 diabetes mellitus without complications; I10 Essential (primary) hypertension
CPT/HCPCS: 36415; 80053; 80061; 82043; 82570; 84153; 85025; G0103

== ENCOUNTER → 2025-01-14 | Outpatient (CLI) | payer MEDICARE, SELFPAY ==
[2025-01-14 18:26] LABS: AST(SGOT) 40 U/L (<=37); Alanine Aminotransfer ALT/SGPT 35 U/L (<=46); Albumin, Serum 4.3 g/dL (3.4-4.8); Alkaline Phosphatase 96 U/L (40-129); Anion Gap 14 (5-15); BUN 11 mg/dL (4-19); BUN/Creat Ratio 10.8 RATIO (10-20); Calcium,Total 9.9 mg/dL (7.6-11.0); Carbon Dioxide 26.6 mmol/L (21.0-32.0); Chloride 95 mmol/L (98-108); Globulin 4.0 g/dL (2.2-4.2); Glucose 306 mg/dL (70-99); Magnesium 2.3 mg/dL (1.5-2.2); Potassium 3.6 mmol/L (3.3-5.1)
[2025-01-14 20:25] LABS: Creatinine, Urine (random) 37.70 mg/dL (39.00-259.00); Microalbumin,Random Urine < 12.0 mg/L (<20 mg/L)
== END | disposition home or self-care (01) ==
LOC: BFHLAB 14:25
PROVIDERS: PCP Family Medicine; Visit Provider Family Medicine
DX: E11.65 Type 2 diabetes mellitus with hyperglycemia (principal); I10 Essential (primary) hypertension; R25.2 Cramp and spasm
CPT/HCPCS: 36415; 80053; 82043; 82570; 83735

== ENCOUNTER → 2025-04-12 | Outpatient (CLI) | payer MEDICARE, SELFPAY ==
[2025-04-12 18:22] LABS: Cholesterol 106 mg/dL (<=200); Low Density Lipoprotein Calc. 37 mg/dL; PSA,Total - Annual Screen 0.43 ng/mL (0.02-4.00); Triglycerides 171 mg/dL; Very Low Density Lipoprotein 34 mg/dL (5-40); cholesterol:hdl ratio screen 2.61
== END | disposition home or self-care (01) ==
LOC: BFHLAB 14:34
PROVIDERS: PCP Family Medicine; Visit Provider Family Medicine
DX: Z12.5 Encounter for screening for malignant neoplasm of prostate (principal); E11.9 Type 2 diabetes mellitus without complications
CPT/HCPCS: 36415; 80061; 84153; G0103